=== PATIENT | male | born 1950 | race Caucasian/White ===

== ENCOUNTER 2021-02-26 11:06 | Day surgery (SDC) | payer MEDICARE ==
--- NOTE | 2021-02-26 10:00 | HP ---
DATE OF SURGERY: 02/26/2021 HISTORY OF PRESENT ILLNESS: The patient is a 70 year-old who had a bulge in right inguinal area as well as umbilical area consistent with symptomatic right inguinal hernia as well as umbilical hernia. He does not appear to have a large hernia on the left but maybe a slight trace weakness of abdominal wall in that area but no large hernia problem to repair at this time. PAST MEDICAL HISTORY: Anxiety. He has mental disability. Hypertension. History of colon polyps in the past. PAST SURGICAL HISTORY: Colonoscopy. MEDICATIONS: Acetaminophen, Dorzolamide eye drops, vitamin D3, citalopram, buspirone, bupivacaine, fluconazole spray, bupivacaine, Latanoprost, hydrocortisone cream, meloxicam, Eucerin cream, Milk of Magnesia, quetiapine, oral potassium, Travatan eye drops, triamcinolone cream, ALLERGIES: NKDA. FAMILY HISTORY: Negative in regards to this specific problem. SOCIAL HISTORY: No smoking or alcohol abuse. REVIEW OF SYSTEMS: Fourteen systems reviewed. No chest pain or palpitations. Other systems negative or noncontributory as above and per preadmission questionnaire. PHYSICAL EXAMINATION: GENERAL: No acute distress. HEENT: Sclerae nonicteric. NECK: No JVD. CHEST: Equal excursion, nonlabored breathing. CVS: Regular rate and rhythm. ABDOMEN: Soft. Right umbilical area hernia likely with some preperitoneal fat or omentum as well as inguinal hernia chronic in nature. He is obese. On the left no large hernia complication at this time. EXTREMITIES: No cyanosis. NEURO: Alert, oriented, moving extremities symmetrically. PSYCH: Appropriate mood and affect. IMPRESSION: Incarcerated umbilical hernia that needs repair with mesh as well as right inguinal hernia. Given his size and body habitus will repair in open fashion. Risks and benefits explained in detail but not limited to bleeding or infection, risk of hematoma or seroma formation, risk of ingrown hair or suture reaction, risk of mesh infection possibly requiring removal, remote risk of scar formation, adhesion or obstruction, remote risk of mesh fracture or failure possibly creating issue with viscera or other structures possibly requiring other procedure, general risk of aches, pains, burning, numbness abdomen, groin, thigh or scrotal area possibly intermediate or chronic in nature and up to 10 to 12%, possibly high risk of intermittent ache or twinge, risk of hernia recurrence. General risk of anesthesia, deep venous thrombosis, pulmonary embolism, pneumonia, risk of cardiopulmonary event but not limited to consent obtained, will proceed with open repair of incarcerated umbilical hernia with mesh as well as open repair of right inguinal hernia with mesh as an outpatient.
[~2021-02-26 11:06] MED LIST: Sensorcaine 0.25% 10 ML ONE
[2021-02-26] MEDS ORDERED: CEFAZOLIN 2 GM-D5W BAG** 2 GM/50 ML ML IV ONE (11:12)
[2021-02-26] MEDS ORDERED: Lactated Ringers 1,000 ML IV ONE (11:12)
[2021-02-26] MEDS: CEFAZOLIN 2 GM-D5W BAG** 2 GM/50 ML ML IV SCH (11:15)
[2021-02-26] MEDS: Lactated Ringers 1,000 ML IV SCH (11:15)
[2021-02-26 11:35] LABS: Hematocrit 42.4 % (42-50); Hemoglobin 14.4 gm/dl (12.5-18.0); Mean Cell Volume 89.1 fl (78-100); Mean Corpuscular Hemoglobin 30.3 pg (26-32); Mean Platelet Volume 9.6 fl (7.5-11.0); Platelet Count 172 K/mm3 (150-450); Red Blood Count 4.76 M/mm3 (4.1-5.6); Red Cell Distribution Width 12.4 % (11.5-14.0); White Blood Count 4.4 K/mm3 (4.0-10.5)
[2021-02-26 11:47] LABS: ALBUMIN 4.5 g/dL (3.5-5.0); ALKALINE PHOSPHATASE 98 U/L (38-126); ANION GAP 14.3 MEQ/L (5-15); BLOOD UREA NITROGEN 20 mg/dL (9-20); CHLORIDE 103 mmol/L (98-107); Calcium 9.3 mg/dL (8.4-10.2); Carbon Dioxide 26 mmol/L (22-30); EST GLOMERULAR FILTRATION RATE > 60.0 ML/MIN; Glucose 104 mg/dL (74-106); Potassium 4.5 mmol/L (3.5-5.1); SGOT/AST 23 U/L (17-59); SGPT/ALT 18 U/L (0-50); SODIUM 138 mmol/L (137-145); Total Protein 7.8 g/dL (6.3-8.2)
[2021-02-26] MEDS ORDERED: Zemuron 100 MG/10 ML ONE (13:17)
[2021-02-26] MEDS ORDERED: Versed 2 MG/2 ML Injection ONE (13:17)
[2021-02-26] MEDS ORDERED: SUBLIMAZE 250 MCG/5 ML ONE (13:17)
[2021-02-26] MEDS ORDERED: DIPRIVAN 200 MG/20 ML IV ONE (13:17)
[2021-02-26] MEDS ORDERED: MARCAINE 0.5%-EPI 1:200,000 VL IJ ONE (15:11)
[2021-02-26] MEDS ORDERED: Marcaine 0.5%/Epinephrine 10 ML ONE (15:11)
[2021-02-26] MEDS ORDERED: Sensorcaine 0.25% 10 ML ONE (15:13)
[2021-02-26] MEDS ORDERED: BRIDION 200MG/2ML IV ONE (15:34)
[2021-02-26 17:12] VITALS: PULSE 69
[2021-02-26] MEDS ORDERED: MORPHINE SULFATE 4 MG INJ ONE (17:14)
[2021-02-26] MEDS: MORPHINE SULFATE 4 MG INJ IV PRN (17:16)
[2021-02-26 17:28] VITALS: BP 153/99; O2SAT 95
--- NOTE | 2021-02-27 09:20 | OP ---
SURGERY DATE/TIME: 02/26/2021 1322 PREOPERATIVE DIAGNOSES: 1) Incarcerated umbilical area ventral hernia. 2) Right inguinal hernia. POSTOPERATIVE DIAGNOSES: 1) Incarcerated umbilical area ventral hernia. 2) Right inguinal hernia. PROCEDURES: 1) Open repair right inguinal hernia with mesh. 2) Open repair incarcerated umbilical area ventral hernia with mesh. SURGEON: Dr. Nic Yepez. ANESTHESIA: General. ESTIMATED BLOOD LOSS: Minimal. INDICATIONS: As noted above. Risks and benefits explained in detail and not limited to and consent obtained. The site confirmed and marked in the preoperative holding area with the patient. DESCRIPTION OF PROCEDURE AND FINDINGS: He is taken to the operating room. General anesthesia induced. The abdomen is prepped and draped in usual sterile fashion. After official time out and no disagreement with planned procedure, a transverse incision made right inguinal area. Dissection carried down to large amount of subcutaneous tissue through Debbie fascia. A small epigastric vein was carefully clamped, cut and ligated tied with Vicryl ties. Dissection carried down through Debbie through the external oblique split in the direction of its fibers towards the external ring carefully protecting the visible branch to the ilioinguinal and iliohypogastric nerve. The cord was quite fatty. It was carefully mobilized up off the pubic tubercle with Tu drain. Cremasteric fibers carefully and a large indirect hernia sac with smaller direct component. The sac was quite sticky as it had been quite inflamed and had for some time. Slowly and carefully from the cord vessels and vas. Dissected down to the internal ring where it was opened and noted to be devoid of any contents. It was high ligated with 0 Prolene x2 and passed off. The direct component was imbricated down with running 0 PDS. I felt he would benefit from mesh repair. A 2 x 4 piece of mesh cut with keyhole and secured to the fascia overlying pubic tubercle with 0 Prolene. 0 Prolene run along Viral's ligament along the shelving portion of the inguinal ligament laterally past the internal ring with 0 Prolene transfixing the mesh to the rectus fascia medially, 0 Vicryl used to transfix aponeurosis internal oblique superiorly. Tails of the mesh tacked together laterally with 0 Prolene. The new internal ring was felt to be not too tight, mesh nice and flat in tension-free fashion. The patient's tissue was quite weak. It was felt that he is at moderate to high risk of recurrence down the road but it was felt this is the best repair possible at this point. The wound is irrigated out. Good hemostasis noted. External oblique closed with 0 Vicryl. Debbie closed with 3-0 Vicryl. Subcu closed 3-0 Vicryl. Skin closed with 4-0 Vicryl and 0.25% Marcaine local had been injected along the skin incision back towards the origin of the inguinal area back towards the anterior iliac spine. At this point gloves and instruments changed. A transverse incision made in the mid abdomen. Dissection carried down to moderately large incarcerated umbilical hernia. It was carefully from the umbilical tissue, dissected down to the level of the fascia and carefully dissecting preperitoneal space circumferentially around it. It was felt size [address] mesh most appropriate size mesh. It was carefully placed underneath and secured with 0 Prolene 1 cm apart circumferentially in a tension-free manner. The straps were cut and discarded. Attenuated fascia closed over the top of the mesh isolating away with 0 PDS. The wound irrigated out. Good hemostasis noted. The umbilical tissue had been tacked back to the level of the fascia with 0 Vicryl. Superficial subcu closed with 3-0 Vicryl. Skin closed with 4-0 Vicryl. Steri-Strips and sterile dressing applied, 0.25% Marcaine local had been injected along the edges in field pattern. Anesthesia applying tap blocks at the end of the procedure. The patient tolerated the procedure well. There were no immediate complications.
== END 2021-02-26 17:40 | disposition home or self-care (01) ==
LOC: SDC 11:06
PROVIDERS: ATTEND Surgery
DX: K42.0 Umbilical hernia with obstruction, without gangrene (principal); K40.90 Unilateral inguinal hernia, without obstruction or gangrene, not specified as recurrent; I10 Essential (primary) hypertension; Z79.899 Other long term (current) drug therapy; F41.9 Anxiety disorder, unspecified; F79 Unspecified intellectual disabilities
CPT/HCPCS: 36415; 49505; 49587; 64488; 76937; 76942; 80053; 85027; 93005; C1781; J0690; J2250; J2270; J2704; J3010; L0625

== ENCOUNTER 2021-08-20 12:15 | Day surgery (SDC) | payer MEDICARE ==
--- NOTE | 2021-08-20 09:26 | HP ---
AMENDED REPORT: DATE OF SURGERY: 08/20/2021 HISTORY OF PRESENT ILLNESS: The patient is a 70 year-old with aching left inguinal bulge. He had left inguinal hernia on exam. He is in need of repair. PAST MEDICAL HISTORY: Mild mental retardation. Mood disorder. Anxiety. Glaucoma. Seasonal allergies. PAST SURGICAL HISTORY: No left inguinal hernia surgery before. MEDICATIONS: Buspirone, brimonidine tartrate drops, Betimol drops. Eucerin cream PRN. Clotrimazole shampoo PRN. Robitussin PRN. Acetaminophen. ALLERGIES: NKDA. FAMILY HISTORY: Negative in regards to this problem. SOCIAL HISTORY: No smoking or alcohol abuse. REVIEW OF SYSTEMS: Fourteen systems reviewed. No chest pain or palpitations. Other systems negative or noncontributory as above and per preadmission questionnaire. He does have some Autism and mild retardation. PHYSICAL EXAMINATION: GENERAL: No acute distress. HEENT: Sclerae nonicteric. NECK: No JVD. CHEST: Equal excursion, nonlabored breathing. CVS: Regular rate and rhythm. ABDOMEN: Soft. Left inguinal hernia on exam. EXTREMITIES: No significant edema. NEURO: Alert, oriented, moving extremities symmetrically. PSYCH: Appropriate mood and affect. IMPRESSION: Left inguinal hernia. I feel the patient will benefit from repair. Given the size options were discussed of open repair. Risks explained in detail but not limited to bleeding or infection, risk of bowel injury or perforation possibly requiring further procedure, risk of hematoma or seroma formation, risk of aches, pains, burning; numbness lower abdomen, groin, thigh or scrotal area possibly fpc or chronic in nature up 10 to 12%, overall risk of hernia recurrence, risk of mesh infection possibly requiring removal, risk of urinary retention, risk of black, blue or bruising, general risk of risk of anesthesia, deep vein thrombosis, pulmonary embolism, pneumonia or sedation but not limited to, consent obtained. Will proceed with open repair left inguinal hernia with mesh as an outpatient.
[~2021-08-20 12:15] MED LIST changes: +CEFAZOLIN 2 GM-D5W BAG** 2 GM/50 ML ML IV SCH; +Lactated Ringers 1,000 ML IV ONE; +Lactated Ringers 1,000 ML IV SCH
[2021-08-20] MEDS ORDERED: CEFAZOLIN 2 GM-D5W BAG** 2 GM/50 ML ML IV ONE (12:48)
[2021-08-20] MEDS ORDERED: Lactated Ringers 1,000 ML IV ONE (12:48)
[2021-08-20] MEDS ORDERED: SUBLIMAZE 100 MCG/2 ML ONE ×2 (14:13→16:42)
[2021-08-20] MEDS ORDERED: BRIDION 200MG/2ML IV ONE (14:13)
[2021-08-20] MEDS ORDERED: Zofran 4 MG/2 ML VIAL ONE (14:13)
[2021-08-20] MEDS ORDERED: Zemuron 100 MG/10 ML ONE (14:13)
[2021-08-20] MEDS ORDERED: Decadron 4 MG INJ ONE ×2 (14:13→16:03)
[2021-08-20] MEDS ORDERED: TORAdol 30 mg Injection ONE (14:13)
[2021-08-20] MEDS ORDERED: Xylocaine-Mpf 2% 5 Ml Vial ONE (14:13)
[2021-08-20] MEDS ORDERED: DIPRIVAN 200 MG/20 ML IV ONE (14:13)
[2021-08-20] MEDS ORDERED: DILAUDID 2 MG INJECTION ONE (15:59)
[2021-08-20] MEDS ORDERED: Naropin 0.5% 30 ML VIAL ONE (16:03)
[2021-08-20 17:56] VITALS: O2SAT 92
[2021-08-20 18:16] VITALS: BP 158/85; PULSE 83
--- NOTE | 2021-08-21 11:18 | OP ---
SURGERY DATE/TIME: 08/20/2021 1412 PREOPERATIVE DIAGNOSIS: Large left inguinal hernia in need of repair. POSTOPERATIVE DIAGNOSIS: Large sliding left inguinal hernia with omental and colon sliding contents, extensively weak inguinal floor. PROCEDURES: Open repair left inguinal repair with mesh. SURGEON: Dr. Nic Yepez. APPRISE COUNSELOR: Maxwell Whittaker, Medical Student III. ANESTHESIA: General. ESTIMATED BLOOD LOSS: Minimal. INDICATIONS: As noted above. Risks and benefits explained in detail and not limited to and consent was obtained. Site had been confirmed and marked in the preoperative holding area. DESCRIPTION OF PROCEDURE AND FINDINGS: The patient is taken to the operating room. General anesthesia induced. Abdomen prepped and draped in sterile fashion. After official time out and no disagreement with planned procedure, a transverse incision made left inguinal area. Dissection carried through the large amount of adipose tissue. Small inferior epigastric veins were clamped, divided and ligated. Dissection carried down through Debbie fascia. The external oblique split in the direction of its fibers toward the external ring carefully protecting the visible ilioinguinal and iliohypogastric nerve branches. A very large, fat infiltrated cord with large hernia contents and quite a weak inguinal floor. Cremasteric fibers carefully direct and indirect components. The indirect component hernia sac carefully opened and noted to have incarcerated omentum and sliding component of colon as making up part of the wall this was quite weak tissue. This took some time to dissect this free from the hernia sac and then dissected back to the internal ring. Once this was accomplished and reduced back up in the abdomen the hernia sac ligated with 0 Prolene purse string staying well away from the cord vessels and vasculature. He did have a cord lipoma out laterally that was carefully excised and high ligated with some 2-0 Vicryl suture ligature and ties out lateral from the internal ring. He had a lot of fat intertwined in his cord vessel. It was felt this would do more damage than any benefit. At this point the inguinal floor was then brought back to its normal fashion imbricating the direct hernia inward with some 0 PDS imbricating the direct hernia component downward up to the more normal sized internal ring. It was felt he would benefit from mesh repair. A 2 x 4 piece of mesh cut to appropriate dimensions with keyhole cut, secured to the fascia around pubic tubercle with 0 Prolene and run along Viral's ligament with 0 Prolene along the shelving portion of the ileum and laterally past the internal ring with 0 Prolene. 0 Prolene used to transfix to the rectus fascia medially and 0 Vicryl used to transfix the aponeurosis and internal oblique superiorly avoiding the visible branches of the iliohypogastric nerve. Tails of the mesh attached out laterally with Prolene. New internal ring was felt to be not too tight. He had very weak lateral musculature and inguinal floor area and this is the best repair possible at this point as it was felt he is at moderately high risk of recurrence down the road. Adequate hemostasis noted. External oblique closed with 0 Vicryl. Debbie closed with 3-0 Vicryl. Subcu closed with 3-0 Vicryl. Skin closed with 4-0 Vicryl. 0.25% Marcaine local injected along the skin incision back towards the origin of the internal ring back towards anterior iliac spine. Anesthesia to apply tap blocks. The patient tolerated the procedure well. This was a very difficult hernia given his body habitus and the large broad base with omental and colon sliding contents with no real good peritoneal sac. The patient was transferred to the recovery room in stable condition. Findings discussed with the family out in the waiting area.
== END 2021-08-20 18:25 | disposition home or self-care (01) ==
LOC: SDC 12:15
PROVIDERS: ATTEND Surgery
DX: K40.30 Unilateral inguinal hernia, with obstruction, without gangrene, not specified as recurrent (principal); Z79.899 Other long term (current) drug therapy
CPT/HCPCS: 49507; 64486; 76937; C1781; 76942; J0690; J1100; J1170; J1885; J2405; J2704; J2795; J3010

== ENCOUNTER 2023-02-05 16:38 | Emergency (ER) | payer MEDICARE ==
[2023-02-05 16:54] VITALS: PULSE 70; O2SAT 94
[2023-02-05 17:20] LABS: Absolute Neutrophil Ct (ANC) 2.45 x10^3/uL (1.4-6.9); BASOPHIL % 0.7 % (0.0-0.4); Basophil (Absolute #) 0.03 x10^3/uL (0-0.4); Eosinophil % 2.9 % (0.00-5.0); Eosinophil (Absolute #) 0.13 x10^3/uL (0-0.5); Hematocrit 39.5 % (42-50); Hemoglobin 13.4 g/dL (12.5-18.0); Lymphocyte (Absolute #) 1.56 x10^3/uL (1.0-4.6); Lymphocytes % 34.3 % (24.0-44.0); Mean Cell Volume 88.8 fL (78-100); Mean Corpuscular Hemoglobin 30.1 pg (26-32); Mean Corpuscular Hgb Concent. 33.9 g/dL (32-36); Mean Platelet Volume 9.1 fL (7.5-11.0); Monocyte (Absolute #) 0.38 x10^3/uL (0.0-1.3); Monocytes % 8.4 % (0.0-12.0); Neutrophil % 53.7 % (36.0-66.0); Platelet Count 192 x10^3/uL (150-450); Red Blood Count 4.45 x10^6/uL (4.1-5.6); Red Cell Distribution Width 11.9 % (11.5-14.0); White Blood Count 4.6 x10^3/uL (4.0-10.5)
--- NOTE | 2023-02-05 17:30 | ERPHSYRPT ---
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 Patient has a form of intellectual disability. Per the facility patient has not been acting himself the past few days. They feel that he is more off balance. No falls or other known traumas. No fever no chills. No cough cold congestion. They do not believe he has COVID, flu, other obvious infectious-like symptoms. He does not have any complaints himself. He is moving all 4 extremities without difficulty and follows commands. Allergies/Adverse Reactions: No Known Drug Allergies Allergy (Verified 02/05/23 16:50) Home Medications: Citalopram Hydrobromide [ceLEXa] 40 mg PO DAILY 02/28/14 [History] Quetiapine Fumarate [Seroquel Xr] 200 mg PO QPM 02/28/14 [History] Cholecalciferol (Vitamin D3) [Vitamin D3] 1,000 unit PO DAILY 02/16/21 [History] Dorzolamide HCl/Pf [Dorzolamide 2% Eye Drop] 1 drop OP BID 02/16/21 [History] Latanoprost [Xalatan] 2.5 ml OP HS 02/16/21 [History] Meloxicam 7.5 mg PO DAILY 02/16/21 [History] Buspirone HCl [Buspar] 15 mg PO TID 02/26/21 [History] Brimonidine Tartrate [Alphagan P 0.15%] 1 drop OP BID 07/12/21 [History] Timolol [Betimol] 1 drop OP BID 07/12/21 [History] Hx Tetanus, Diphtheria Vaccination/Date Given: Yes Hx Influenza Vaccination/Date Given: No Hx Pneumococcal Vaccination/Date Given: No Immunizations Up to Date: Yes Travel Risk - International Travel Have you traveled outside of the country in past 3 weeks: No - Coronavirus Screening Are you exhibiting any of the following symptoms?: No Close contact with a COVID-19 positive Pt in past 14-21 Days: No - Vaccine Status Have you recieved a Covid-19 vaccination: Yes Rn Intern: Unknown - Vaccination Dates Date of 2cond Vaccination (if applicable): 2020 Dates if Unknown: ? - Review of Systems Constitutional: Other (Acting "off"), No Fever, No Chills Eyes: No Symptoms Ears, Nose, & Throat: No Symptoms Respiratory: No Cough, No Dyspnea Cardiac: No Chest Pain, No Edema, No Syncope Abdominal/Gastrointestinal: No Abdominal Pain, No Nausea, No Vomiting, No Diarrhea Genitourinary Symptoms: No Dysuria Musculoskeletal: No Back Pain, No Neck Pain Skin: No Rash Neurological: No Dizziness, No Focal Weakness, No Sensory Changes Psychological: No Symptoms, Other (More off balance) Endocrine: No Symptoms All Other Systems: Reviewed and Negative - Past Medical History Pertinent Past Medical History: Yes Neurological History: Other ENT History: Glaucoma Cardiac History: No Pertinent History, Hypertension Respiratory History: No Pertinent History Endocrine Medical History: No Pertinent History Musculoskeletal History: Arthritis GI Medical History: No Pertinent History History: No Pertinent History Psycho-Social History: Other Male Reproductive Disorders: No Pertinent History Other Medical History: mental retardation from . moderate mental disability- mild autism - Past Surgical History Past Surgical History: Yes Neuro Surgical History: No Pertinent History Cardiac: No Pertinent History Respiratory: No Pertinent History Gastrointestinal: Hernia Repair Genitourinary: No Pertinent History Musculoskeletal: No Pertinent History Male Surgical History: No Pertinent History Other Surgical History: colonoscopy - Social History Smoking Status: Never smoker Exposure to second hand smoke: No Drug Use: none Patient Lives Alone: No Significant Family History: no pertinent family hx - Nursing Vital Signs Nursing Vital Signs: Initial Vital Signs Temperature 97.2 F 02/05/23 16:53 Pulse Rate 70 02/05/23 16:53 Respiratory Rate 16 02/05/23 16:53 Blood Pressure 183/103 02/05/23 16:53 O2 Sat by Pulse Oximetry 94 L 02/05/23 16:53 Pain Scale Pain Intensity 0 - Physical Exam General Appearance: no apparent distress, alert Eye Exam: PERRL/EOMI, eyes nml inspection Ears, Nose, Throat Exam: normal ENT inspection, TMs normal, pharynx normal, moist mucous membranes Neck Exam: normal inspection, non-tender, supple, full range of motion Respiratory Exam: normal breath sounds, lungs clear, No respiratory distress Cardiovascular Exam: regular rate/rhythm, normal heart sounds, normal peripheral pulses Gastrointestinal/Abdomen Exam: soft, normal bowel sounds, No tenderness, No mass Back Exam: normal inspection, normal range of motion, No CVA tenderness, No vertebral tenderness Extremity Exam: normal inspection, normal range of motion, pelvis stable Neurologic Exam: alert, oriented x 3, cooperative, normal mood/affect, nml cerebellar function, nml station & gait, sensation nml, No motor deficits Skin Exam: normal color, warm, dry, No rash Lymphatic Exam: No adenopathy SpO2: 94 - Course Nursing assessment & vital signs reviewed: Yes EKG Interpreted by Me: Sinus Rhythm Ordered Tests: Active Orders 24 hr Category Date Time Status EKG-ER Only STAT Care 02/05/23 17:01 Completed IV Insertion STAT Care 02/05/23 17:01 Completed HEAD WITHOUT CONTRAST [CT] Stat Exams 02/05/23 17:01 Taken CBC W DIFF Stat Lab 02/05/23 17:15 Completed CMP Stat Lab 02/05/23 17:15 Completed TROPONIN Q4H Lab 02/05/23 17:30 Completed TROPONIN Q4H Lab 02/05/23 21:30 Ordered UA W/RFX UR CULTURE Stat Lab 02/05/23 17:35 Completed Lab/Rad Data: Laboratory Result Diagrams 02/05/23 17:15 02/05/23 17:15 Laboratory Results 02/05/23 02/05/23 02/05/23 Range/Units 17:35 17:30 17:15 WBC (4.0-10.5) x10^3/uL RBC (4.1-5.6) x10^6/uL Hgb (12.5-18.0) g/dL Hct (42-50) % MCV (78-100) fL MCH (26-32) pg MCHC (32-36) g/dL RDW (11.5-14.0) % Plt Count (150-450) x10^3/uL MPV (7.5-11.0) fL Gran % (36.0-66.0) % Immature Gran % (Auto) (0.00-0.4) % Nucleat RBC Rel Count (0.00-0.1) % Eos # (Auto) (0-0.5) x10^3/uL Immature Gran # (Auto) (0.00-0.03) x10^3u/L Absolute Lymphs (auto) (1.0-4.6) x10^3/uL Absolute Monos (auto) (0.0-1.3) x10^3/uL Absolute Nucleated RBC (0.00-0.01) x10^3u/L Lymphocytes % (24.0-44.0) % Monocytes % (0.0-12.0) % Eosinophils % (0.00-5.0) % Basophils % (0.0-0.4) % Absolute Granulocytes (1.4-6.9) x10^3/uL Basophils # (0-0.4) x10^3/uL Sodium 132 L (137-145) mmol/L Potassium 4.1 (3.5-5.1) mmol/L Chloride 99 (98-107) mmol/L Carbon Dioxide 26 (22-30) mmol/L Anion Gap 10.7 (5-15) MEQ/L BUN 14 (9-20) mg/dL Creatinine 0.86 (0.66-1.25) mg/dL Estimated GFR > 60.0 ML/MIN Glucose 96 (74-106) mg/dL Calcium 8.6 (8.4-10.2) mg/dL Total Bilirubin 0.60 (0.2-1.3) mg/dL AST 21 (17-59) U/L ALT 20 (0-50) U/L Alkaline Phosphatase 127 H (38-126) U/L Troponin I < 0.012 (0.000-0.034) ng/mL Serum Total Protein 7.3 (6.3-8.2) g/dL Albumin 4.1 (3.5-5.0) g/dL Urine Color Yellow (Yellow) Urine Appearance Cloudy A (Clear) Urine pH 7.5 (4.6-8.0) Ur Specific [place] <=1.005 (1.005-1.030) Urine Protein Negative (Negative) Urine Glucose (UA) Negative (Negative) mg/dL Urine Ketones Negative (Negative) Urine Blood Negative (Negative) Urine Nitrite Negative (Negative) Urine Bilirubin Negative (Negative) Urine Urobilinogen 1.0 A (0.2) mg/dL Ur Leukocyte Esterase Negative (Negative) U Hyaline Cast (Auto) NONE SEEN (0-2) /LPF Urine Microscopic RBC 0-2 (0-5) /HPF Urine Microscopic WBC 0-2 (0-5) /HPF Ur Epithelial Cells None Seen (None Seen) /HPF Urine Bacteria None Seen (None Seen) /HPF Urine Culture Reflexed NO (NO) 02/05/23 Range/Units 17:15 WBC 4.6 (4.0-10.5) x10^3/uL RBC 4.45 (4.1-5.6) x10^6/uL Hgb 13.4 (12.5-18.0) g/dL Hct 39.5 L (42-50) % MCV 88.8 (78-100) fL MCH 30.1 (26-32) pg MCHC 33.9 (32-36) g/dL RDW 11.9 (11.5-14.0) % Plt Count 192 (150-450) x10^3/uL MPV 9.1 (7.5-11.0) fL Gran % 53.7 (36.0-66.0) % Immature Gran % (Auto) 0.0 (0.00-0.4) % Nucleat RBC Rel Count 0.0 (0.00-0.1) % Eos # (Auto) 0.13 (0-0.5) x10^3/uL Immature Gran # (Auto) 0.00 (0.00-0.03) x10^3u/L Absolute Lymphs (auto) 1.56 (1.0-4.6) x10^3/uL Absolute Monos (auto) 0.38 (0.0-1.3) x10^3/uL Absolute Nucleated RBC 0.00 (0.00-0.01) x10^3u/L Lymphocytes % 34.3 (24.0-44.0) % Monocytes % 8.4 (0.0-12.0) % Eosinophils % 2.9 (0.00-5.0) % Basophils % 0.7 (0.0-0.4) % Absolute Granulocytes 2.45 (1.4-6.9) x10^3/uL Basophils # 0.03 (0-0.4) x10^3/uL Sodium (137-145) mmol/L Potassium (3.5-5.1) mmol/L Chloride (98-107) mmol/L Carbon Dioxide (22-30) mmol/L Anion Gap (5-15) MEQ/L BUN (9-20) mg/dL Creatinine (0.66-1.25) mg/dL Estimated GFR ML/MIN Glucose (74-106) mg/dL Calcium (8.4-10.2) mg/dL Total Bilirubin (0.2-1.3) mg/dL AST (17-59) U/L ALT (0-50) U/L Alkaline Phosphatase (38-126) U/L Troponin I (0.000-0.034) ng/mL Serum Total Protein (6.3-8.2) g/dL Albumin (3.5-5.0) g/dL Urine Color (Yellow) Urine Appearance (Clear) Urine pH (4.6-8.0) Ur Specific [place] (1.005-1.030) Urine Protein (Negative) Urine Glucose (UA) (Negative) mg/dL Urine Ketones (Negative) Urine Blood (Negative) Urine Nitrite (Negative) Urine Bilirubin (Negative) Urine Urobilinogen (0.2) mg/dL Ur Leukocyte Esterase (Negative) U Hyaline Cast (Auto) (0-2) /LPF Urine Microscopic RBC (0-5) /HPF Urine Microscopic WBC (0-5) /HPF Ur Epithelial Cells (None Seen) /HPF Urine Bacteria (None Seen) /HPF Urine Culture Reflexed (NO) - Progress Progress: improved Progress Note: 02/05/23 17:28 differential diagnosis includes: PNA, STEMI, NSTEMI, other infection, musculoskeletal pain, - We'll obtain basic labs, fluids, EKG, troponin, chest x-ray - I feel comfortable with one time negative troponin given symptoms have improved and started greater then 6 hours ago. - EKG shows no ST changes - my read. See full read below. - O2 saturations consistently greater than 95%. 02/05/23 18:22 UA shows no signs of infection. Head CT read by radiology. No obvious abnormalities per their read. Overall, patient's labs look stable without obvious abnormality. He has no fever, other signs of sinister pathology here. Therefore my recommendation is close follow-up with PCP. No signs of stroke. No focal deficits. Patient need to return here sooner for new or changing symptoms. Counseled pt/family regarding: lab results, diagnosis, need for follow-up, rad results - Departure Departure Disposition: Home Clinical Impression: Mild intellectual disabilities Condition: Stable Critical Care Time: No Referrals: DEANA CHERRY MD [Primary Care Provider] - Follow up/PCP as directed Instructions: Altered Mental Status (DC)
[2023-02-05 17:34] LABS: ALBUMIN 4.1 g/dL (3.5-5.0); ALKALINE PHOSPHATASE 127 U/L (38-126); ANION GAP 10.7 MEQ/L (5-15); BLOOD UREA NITROGEN 14 mg/dL (9-20); CHLORIDE 99 mmol/L (98-107); Calcium 8.6 mg/dL (8.4-10.2); Carbon Dioxide 26 mmol/L (22-30); Creatinine 1 0.86 mg/dL (0.66-1.25); EST GLOMERULAR FILTRATION RATE > 60.0 ML/MIN; Glucose 96 mg/dL (74-106); Potassium 4.1 mmol/L (3.5-5.1); SGOT/AST 21 U/L (17-59); SGPT/ALT 20 U/L (0-50); SODIUM 132 mmol/L (137-145); Total Protein 7.3 g/dL (6.3-8.2)
[2023-02-05 17:49] LABS: Appearance Cloudy (Clear); Bacteria None Seen /HPF (None Seen); Bilirubin Negative (Negative); Blood Negative (Negative); Epithelial Cells None Seen /HPF (None Seen); Glucose, Urine Negative (Negative); Hyaline Casts NONE SEEN /LPF (0-2); Ketones Negative (Negative); Leukocyte Esterase Negative (Negative); Nitrite Negative (Negative); Ph 7.5 (4.6-8.0); Protein,Urine Dip Negative (Negative); RBC 0-2 /HPF (0-5); Specific Gravity <=1.005 (1.005-1.030); WBC 0-2 /HPF (0-5)
[2023-02-05 17:50] LABS: ADD URINE CULTURE? NO (NO)
[2023-02-05 18:16] VITALS: BP 176/104
--- NOTE | 2023-02-06 08:35 | XRAY ---
Indication: Acute mental status change. Multiple contiguous axial images obtained through the head without contrast. Comparison: None Several images are slightly degraded by motion. Age-appropriate global atrophy and mild periventricular degenerative micro-ischemia bilaterally. No gross acute intracranial hemorrhage, abnormal extra-axial fluid collection, or mass effect. Fourth ventricle is midline without hydrocephalus. Bony calvarium grossly intact. Visualized paranasal sinuses and mastoid air cells are clear. Impression: Motion artifact. Grossly nonacute senile brain.
== END 2023-02-05 18:20 | disposition home or self-care (01) ==
LOC: ED 16:38
DX: F84.0 Autistic disorder (principal); F70 Mild intellectual disabilities; R26.89 Other abnormalities of gait and mobility; I10 Essential (primary) hypertension; Z79.899 Other long term (current) drug therapy
CPT/HCPCS: 36000; 36415; 70450; 80053; 81001; 84484; 85025; 93005; 99284

== ENCOUNTER 2023-09-17 06:11 | Day surgery (SDC) | payer MEDICARE ==
[2023-09-17 06:28] VITALS: TEMP 97.2
[2023-09-17] MEDS ORDERED: Lactated Ringers 1,000 ML IV SCH (06:30)
[2023-09-17] MEDS ORDERED: DIPRIVAN 200 MG/20 ML IV ONE ×2 (08:07→08:29)
[2023-09-17] MEDS ORDERED: Xylocaine-Mpf 2% 5 Ml Vial ONE (08:08)
[2023-09-17] MEDS ORDERED: Versed 2 MG/2 ML Injection ONE (08:09)
[2023-09-17 09:17] VITALS: RESP 18; O2SAT 98
[2023-09-17 09:31] VITALS: BP 141/88; PULSE 73
--- NOTE | 2023-09-17 09:51 | OP ---
SURGERY DATE/TIME: 09/17/2023 0820 PREOPERATIVE DIAGNOSES: 1) Dysphagia. 2) History of colon polyps. POSTOPERATIVE DIAGNOSES: 1) Mild gastritis. 2) Descending colon polyp. PROCEDURES: 1) EGD. 2) Colonoscopy. SURGEON: Tony Ha M.D. ANESTHESIA: MAC by Damion Lott CRNA. ESTIMATED BLOOD LOSS: Minimal. SPECIMENS: 1) Two cold forceps biopsies from the gastric antrum. 2) One hot forceps polypectomy from the descending colon. DESCRIPTION OF PROCEDURE: After informed written consent was obtained, the patient was taken to the endoscopy suite. He was placed in left lateral decubitus position and a bite block inserted. Anesthesia was titrated to desired level of consciousness and the endoscope was inserted in the posterior oropharynx. Under direct visualization the esophagus was traversed. The esophageal mucosa had a normal appearance with no obvious lesions, defects or strictures were encountered. Upon entering the stomach there is normal rugated gastric mucosa. There were mild to moderate gastritis-type changes in the gastric antrum with no obvious bleeding or ulceration. The pylorus is traversed and the duodenum had a normal mucosal appearance free of any lesions or defects. Two cold forceps were taken from the gastric antrum and sent for Helicobacter pylori testing. Upon removal of the scope, there were no other mucosal abnormalities encountered. The scope was removed and the scopes were switched. Digital rectal exam showed normal sphincter tone and no internal lesions. The scope was inserted in the rectum and sequentially the entire colonic mucosa was traversed. The level of the cecum was reached and verified with direct visualization of the ileocecal valve. Upon withdrawal there was a sessile polyp in the proximal descending colon which was grasped with forceps, cauterized and removed in its entirety and sent for pathology testing. There was no bleeding following removal. Prep was noted to be poor with semi-solid and liquid stool present throughout scattered locations in the entire length of the colon. No other obvious mucosal abnormalities were encountered upon withdrawal. The scope was removed and the patient was transferred to the recovery room in good condition. He has been instructed to discontinue his meloxicam and follow up in a week for pathology results.
== END 2023-09-17 09:45 | disposition home or self-care (01) ==
LOC: SDC 06:11
PROVIDERS: ATTEND Family Medicine
DX: Z09 Encounter for follow-up examination after completed treatment for conditions other than malignant neoplasm (principal); Z86.010 Personal history of colon polyps; R13.10 Dysphagia, unspecified; K29.70 Gastritis, unspecified, without bleeding; K63.5 Polyp of colon
CPT/HCPCS: J2250; J2704